=== PATIENT | male | born 1965 ===

== ENCOUNTER 2018-04-22 13:55 | Inpatient (IN) ==
[2018-04-22] MEDS ORDERED: IOPAMIDOL 100 ML BOTTLE IV ONE (13:56)
[2018-04-22] MEDS ORDERED: 0.9 % SODIUM CHLORIDE 1,000 ML IV ONE (14:42)
[2018-04-22] MEDS ORDERED: IPRATROPIUM/ALBUTEROL 3 ML AMPUL.NEB NEB ONE ×2 (14:42→16:02)
--- NOTE | 2018-04-22 14:42 | Emergency Department Note ---
General Adult HPI - General Chief complaint: Cold/Flu Symptoms Stated complaint: cold/fever Time Seen by Provider: 04/22/18 14:18 Source: patient Mode of arrival: ambulatory Limitations: no limitations - History of Present Illness HPI Narrative: She referred over from the [facility] clinic as patient's been complaining mostly that he has been having trouble with diarrhea he states his been running fevers of 100 102 over the past 4 days he feels flulike. He is having some trouble breathing with wheezing. He does have an inhaler and a disc but he ran out of his medications did have some low sats at the [facility] clinic they did give a DuoNeb but he continued having some low sats and was referred to the ED.Current temperature is 98.6 the pulse is 98 respirations are 20 the blood pressure 123/67 pulse ox 88% on room air. His chest x-ray shows no acute infiltrates smoker continues smoking has been on an inhaler for the past 2 years he believes he was diagnosed with asthma but is not sure if it was COPD. He did run out of his inhaler - Related Data Home Medications Medication Instructions Recorded Confirmed Doxazosin [Cardura] 1 mg PO HS 04/22/18 04/22/18 rOPINIRole [Requip] 0.5 mg PO HS 04/22/18 04/22/18 tiZANidine [Zanaflex] 4 mg PO TID 04/22/18 04/22/18 Allergies Allergy/AdvReac Type Severity Reaction Status Date / Time No Known Drug Allergies Allergy Unverified 04/22/18 20:03 Review of Systems All systems ED: reviewed and negative except as stated. Constitutional: Reports: fever, chills Eyes: Denies: eye pain ENT ED: Denies: ear pain, throat pain Cardiovascular: Denies: chest pain, palpitations Respiratory: Reports: shortness of breath, wheezes Past Medical History - Past Medical History Medical history: Reports: asthma Family history: Reports: non-contributory - Social History smoking status: Current every day smoker Alcohol use: Reports: Unknown Drug use: Reports: unknown Physical Exam Limitations: no limitations General appearance: alert Head: atraumatic, normocephalic Eye: Present: normal appearance, PERRL ENT: normal exam Neck: Present: normal inspection, full ROM Chest: Present: normal inspection, symmetric chest wall rise Respiratory: Present: normal lung sounds bilaterally, wheezes. Absent: respiratory distress, rales/crackles Cardiovascular: Present: regular rate, normal rhythm Abdominal: Present: soft. Absent: distention, tenderness, guarding, rebound Extremities: Present: normal inspection. Absent: full ROM, tenderness Back: Present: normal inspection. Absent: full ROM, tenderness, CVA tenderness (R) Neurological: Present: alert, oriented X3, CN II-XII intact Psychiatric: Present: normal affect, normal mood. Absent: depressed Skin: Present: warm, cool, dry. Absent: diaphoretic, intact Course Vital Signs Temperature 98.6 F 04/22/18 13:56 Pulse Rate 98 H 04/22/18 13:56 Respiratory Rate 20 04/22/18 13:56 Blood Pressure 123/67 04/22/18 13:56 Pulse Oximetry (%) 88 L 04/22/18 13:56 Temperature 99.3 F H 04/22/18 16:53 Pulse Rate 88 04/22/18 20:01 Respiratory Rate 16 04/22/18 20:01 Blood Pressure 125/56 04/22/18 20:01 Pulse Oximetry (%) 91 04/22/18 20:01 Medical Decision Making - MDM Narrative Medical decision making narrative: Had an elevated d-dimer of 5.0 and CTA showed no evidence of PE. Patient has been given DuoNeb's and put on a heart neb is been in the ED for over 6 hours and his sats continue to drop after the oxygen is removed. It drops down to 87- 86%. At the [facility] clinic he was running in the 80s. He has an inhaler but he has not been using the albuterol inhaler. States his been having wheezing for over 10 years. He does smoke. Chest x-ray was negative as well. Dr. Santana contacted and patient to be admitted - Lab Data Result diagrams: 04/22/18 14:30 Lab Results 04/22/18 04/22/18 04/22/18 Range/Units 14:29 14:29 14:30 WBC 7.3 (4.5-11.0) K/mcL RBC 5.42 (4.50-5.90) M/mcL Hgb 15.8 (13.5-16.5) g/dL Hct 48.0 (41.0-55.0) % POC Hct 49.0 (41.0-55.0) % MCV 88.6 (80.0-100.0) fL MCH 29.1 (26.0-34.0) pg MCHC 32.9 (31.0-36.0) g/dL RDW 13.6 (11.5-14.5) % Plt Count 154 (140-440) K/mcL MPV 9.0 (7.4-10.4) fL Total Counted 100 Seg Neutrophils % 57 (38-78) % Band Neutrophils % 10 (0-10) % Lymphocytes % 21 (15-49) % Monocytes % (Manual) 12 (1-12) % Platelet Estimate Normal (NORMAL) RBC Morphology Normal (NORMAL) D-Dimer (0.00-0.40) ug/ml VBG Lactic Acid 1.6 (0.5-2.0) mmol/L POC Sodium 137 (133-145) mmol/L POC Potassium 3.7 (3.3-5.1) mmol/L POC Chloride 96 (96-108) mmol/L POC Total CO2 26 (22-30) mmol/L POC BUN 14 (6-20) mg/dl POC Creatinine 1.1 (0.7-1.2) mg/dl POC Glucose 125 H (70-105) mg/dL POC WB Ioniz Calcium 1.03 L (1.16-1.32) mmol/L NT-Pro-B Natriuret Pep (0-125) pg/ml Urine Color Urine Appearance Urine pH (5.0-9.0) Ur Specific [place] (1.000-1.035) Urine Protein (NEG) mg/dL Urine Glucose (UA) (NEG) mg/dL Urine Ketones (NEG) mg/dL Urine Occult Blood (<5) anupama/mcL Urine Nitrate (NEG) Urine Bilirubin (NEG) mg/dL Urine Urobilinogen (NEG) mg/dL Ur Leukocyte Esterase (NEG) /uL 04/22/18 04/22/18 04/22/18 Range/Units 14:30 14:34 20:15 WBC (4.5-11.0) K/mcL RBC (4.50-5.90) M/mcL Hgb (13.5-16.5) g/dL Hct (41.0-55.0) % POC Hct (41.0-55.0) % MCV (80.0-100.0) fL MCH (26.0-34.0) pg MCHC (31.0-36.0) g/dL RDW (11.5-14.5) % Plt Count (140-440) K/mcL MPV (7.4-10.4) fL Total Counted Seg Neutrophils % (38-78) % Band Neutrophils % (0-10) % Lymphocytes % (15-49) % Monocytes % (Manual) (1-12) % Platelet Estimate (NORMAL) RBC Morphology (NORMAL) D-Dimer 0.54 H (0.00-0.40) ug/ml VBG Lactic Acid (0.5-2.0) mmol/L POC Sodium (133-145) mmol/L POC Potassium (3.3-5.1) mmol/L POC Chloride (96-108) mmol/L POC Total CO2 (22-30) mmol/L POC BUN (6-20) mg/dl POC Creatinine (0.7-1.2) mg/dl POC Glucose (70-105) mg/dL POC WB Ioniz Calcium (1.16-1.32) mmol/L NT-Pro-B Natriuret Pep < 50.0 (0-125) pg/ml Urine Color Yellow Urine Appearance Clear Urine pH 6.0 (5.0-9.0) Ur Specific [place] 1.015 (1.000-1.035) Urine Protein Trace (NEG) mg/dL Urine Glucose (UA) 500 (2+) (NEG) mg/dL Urine Ketones 5 (trace) (NEG) mg/dL Urine Occult Blood Trace A (<5) anupama/mcL Urine Nitrate Neg (NEG) Urine Bilirubin Neg (NEG) mg/dL Urine Urobilinogen Norm (NEG) mg/dL Ur Leukocyte Esterase Neg (NEG) /uL Disposition Pt seen by DRAFTER (CAD) ELECTRONIC/PA only: No Clinical Impression: Status asthmaticus Disposition: Xfer As Inpt ([facility]) Condition: Fair Referrals: Heriberto Longoria MD [Referring] - Time of Disposition: 20:56
[2018-04-22] MEDS ORDERED: methylPREDNISolone SOD SUCC 125 MG/2 ML VIAL IV ONE (14:44)
--- NOTE | 2018-04-22 14:46 | XRay Report ---
CLINICAL INFORMATION: cough COMPARISON: None. FINDINGS: The heart size, mediastinum and pulmonary vessels are unremarkable. The lungs are clear. There are no effusions. The bones and soft tissues are within normal limits. IMPRESSION: Normal chest. Interpreted and Authenticated by: Delonte Epstein 04/22/18
[2018-04-22 14:56] LABS: Mean Cell Volume 88.6 fL (80.0-100.0); Mean Corpuscular HGB Conc 32.9 g/dL (31.0-36.0); Platelet Count 154 K/mcL (140-440); RBC 5.42 M/mcL (4.50-5.90); Red Cell Distribution Width 13.6 % (11.5-14.5)
[2018-04-22 15:15] LABS: Band Neutrophils % 10 % (0-10); Lymphocytes % 21 % (15-49); Monocytes % (Manual) 12 % (1-12); Platelet Estimate NORMAL (NORMAL); RBC Morphology NORMAL (NORMAL); Segmented Neutrophils % 57 % (38-78)
[2018-04-22] MEDS ORDERED: ACETAMINOPHEN 325 MG TABLET PO ONE (16:01)
--- NOTE | 2018-04-22 17:31 | Cat Scan Report ---
CLINICAL INFORMATION: Elevated d-dimer and chest pain COMPARISON: None. TECHNIQUE: 80 cc of Isovue-300 were injected intravenously. Using SmartPrep to maximize pulmonary artery opacification, 2.5 mm helical slices were obtained from the lung apices through the lung bases. Following reconstruction, 2.5 mm sagittal, coronal, and axial reformations were processed. The exam was reviewed at mediastinal, lung, and bone windows. The exam was performed using radiation dose optimization techniques including, but not limited to, automated exposure control, adjustment of the mA and/or kV according to patient size and use of iterative reconstruction technique. FINDINGS: Pulmonary parenchymal windows show elevated lung volumes and wall thickening dilatation of bronchi compatible bronchitis or asthma. Subsegmental bronchi of the lateral and medial right middle lobe segments demonstrate tubular bronchiectasis. There is also a large paramediastinal bullae in the right middle lobe. No other bullae. Pleural spaces are normal. Mediastinal windows show the pulmonary arteries are suboptimally optimally opacified, but there is no evidence of embolus. Thoracic aorta is normal in contour and caliber. There are mildly enlarged lymph nodes in the lower mediastinum ranging up to 20 mm in the lower right paratracheal region. Lymph nodes nodes up to 12 mm in both tim, pericarinal and periaortic arch regions. These are likely benign reactive lymph nodes. Esophagus is unremarkable. Heart is normal in size and configuration with no appreciable plaque in the coronary arteries. Soft tissues are grossly normal Bones and soft tissues of the chest wall are unremarkable. IMPRESSION: 1. No evidence of pulmonary embolus 2. Moderate bronchitis. Tubular bronchiectasis in the segmental subsegmental right middle lobe bronchi may predispose to future infection. 3. Mild lower mediastinal and hilar adenopathy are likely benign reactive lymph nodes related to pulmonary infection. Interpreted and Authenticated by: Delonte Epstein 04/22/18
[2018-04-22] MEDS ORDERED: ALBUTEROL SULFATE 5 MG/ML NEB SOLUTION BOTTLE NEB ONE (17:39)
[2018-04-22] MEDS ORDERED: ALBUTEROL SULFATE 2.5 MG/3 ML NEBULIZER ONE (17:57)
[2018-04-22 20:53] LABS: Appearance,Urine CLEAR; Bilirubin,Urine NEG (NEG); Color,Urine YELLOW; Glucose,Urine (UA) 500 (2+) mg/dL (NEG); Leukocyte Esterase,Urine NEG /uL (NEG); Protein,Urine TRACE mg/dL (NEG); Specific Gravity,Urine 1.015 (1.000-1.035); Urine Blood TRACE ery/mcL (<5); Urobilinogen,Urine NORM (NEG)
[2018-04-22 21:08] LABS: Bacteria,Urine 0 /hpf (0); Mucus,Urine FEW /hpf (0); Urine RBC 1 /hpf (0-1); Urine Squamous Epithelial Cell 1 /hpf (0-4); Urine WBC 1 /hpf (0-4)
[2018-04-22] MEDS ORDERED: guaiFENesin/DEXTROMETHORPHAN ORAL SOL PO ONE (21:27)
[2018-04-22 21:44] LABS: Amphetamine Screen,Urine NONE DETECTED (NONDETECTED); Benzodiazepines Screen,Urine NONE DETECTED (NONDETECTED); Cocaine Screen,Urine NONE DETECTED (NONDETECTED); Opiate Screen,Urine NONE DETECTED (NONDETECTED); Oxycodone, Urine Screen NONE DETECTED (NONDETECTED)
[2018-04-22] MEDS ORDERED: guaiFENesin W/DM (PP) 5 ML ORAL.SOL (#118) PO ONE (21:48)
--- NOTE | 2018-04-22 22:11 | Internal Med History&Physical ---
Medical - H&P: HPI Patient information: Note initiated : 04/22/18 at 10:06 pm Service Date, if different from initiated Date: [] Patient: Cole Biggs 52 y/o M admitted on for cold/fever. Chief Complaint: [] History of present illness: Mr. Biggs is a 52 year old M with history of smoking, daily use of marijuana, presents to the emergency room for evaluation of shortness of breath and cough that has been bothering him for the last 3-4 days. He and his partner have been down with a viral cough it seems for the last few days, started after he visited a friend in the hospital. Patient has cough whitish sputum no blood in the sputum, denies any sinus congestion or runny nose or watery eyes. He denies any headache changes in vision difficulty in swallowing, denies any nausea abdominal pain, he did have diarrhea watery but has now resolved. He was seen in the chest clinic today and was noted to be hypoxic and therefore sent to the hospital for further evaluation. On presentation patient was afebrile however had a maximum temperature of 101.7 in the ER, heart rate of 101 blood pressure 123/67, respirations 20-24, lowest oxygen saturation was 82% on room air. Chest x-ray was reported as negative. Labs unremarkable, d-dimer mildly elevated at 0.54 lactic acid 1.6 UA clean. Flu test done in the ED was negative. CT angiogram for pulmonary embolism was negative for PE, patient did have moderate bronchitis on the chest CT. patient reports that his back pain is worse after his coughing bouts, he has pins in his back thinks its dislodged. He feels anxious at times. In ther ER despide multiple duonebs, the patient remained hypoxic and is therefore being admitted to the hospital for further management. All systems: reviewed and no additional remarkable complaints except as stated (as per HPI reste neg,) Medical - H&P: PMH Medical history: copd back pain bph h/o opiate use Surgical history: back surgery left foot surgery Pertinent family history: denies h/o asthma Social history: active smoker dialy thc user ex heavy etoh user Medical - H&P: Meds Home Medications Medication Instructions Recorded Confirmed Type Doxazosin [Cardura] 1 mg PO HS 04/22/18 04/22/18 History rOPINIRole [Requip] 0.5 mg PO HS 04/22/18 04/22/18 History tiZANidine [Zanaflex] 4 mg PO TID 04/22/18 04/22/18 History Allergies Allergy/AdvReac Type Severity Reaction Status Date / Time No Known Drug Allergies Allergy Unverified 04/22/18 20:03 Medical - H&P: Exam - Constitutional Vitals: Temp Pulse Resp BP Pulse Ox 99.3 F H 89 24 H 107/55 97 04/22/18 16:53 04/22/18 22:02 04/22/18 22:02 04/22/18 22:02 04/22/18 22:02 Exam: Constitutional; Afebrile, cooperative, alert, not in distress. Eyes- No icterus, , No periorbital swelling Ears- Ext ear normal, hearing normal to conversation. Neck- Midline trachea, supple Respiratory system: Air Entry equal on both sides, poor air entry bilterally, ally exp wheezing, speaking full sentences. CVS- Rate rhythm regular, S1,S2 heard, no gallop, no rub. Abdomen- Soft nontender abdomen, no organomegaly, no tenderness, no guarding or rigidity, METAL BUILDING ASSEMBLER- AOOx3, moving all extremities, no gross focal deficit noted. Medical - H&P: Reslt - Labs CBC & Chem 7: 04/22/18 14:30 Labs: Short CBC 04/22/18 Range/Units 14:30 WBC 7.3 (4.5-11.0) K/mcL Hgb 15.8 (13.5-16.5) g/dL Hct 48.0 (41.0-55.0) % Plt Count 154 (140-440) K/mcL Urine 04/22/18 Range/Units 20:15 Urine Color Yellow Urine Appearance Clear Urine pH 6.0 (5.0-9.0) Ur Specific [place] 1.015 (1.000-1.035) Urine Protein Trace (NEG) mg/dL Urine Glucose (UA) 500 (2+) (NEG) mg/dL Medical - H&P: A/P - Narrative A/P Narrative: A/P Acute copd exacerbatin Acute hypoxic resp failure Chr back pain Anxiety BPH Plan Admit to med surgy oxygen to keep osat > 90 Duonebs, zithromax and steroids PO tamiflu, send resp viral panel check utox check lumbar x ray to r/o any dislodgement of the pin. DVT hep sq Diet regular Full code.
[2018-04-22] MEDS ORDERED: ALBUTEROL SULFATE 2.5 MG/3 ML NEBULIZER NEB PRN (22:34)
[2018-04-22] MEDS ORDERED: ONDANSETRON 4 MG/2 ML VIAL IV PRN (22:34)
[2018-04-22] MEDS ORDERED: NALOXONE HCL 0.4 MG/ML VIAL IV PRN (22:34)
[2018-04-22] MEDS ORDERED: ACETAMINOPHEN 325 MG TABLET PO PRN (22:34)
[2018-04-22] MEDS ORDERED: AZITHROMYCIN 250 MG TABLET PO ONE (22:34)
[2018-04-22] MEDS: IPRATROPIUM/ALBUTEROL 3 ML AMPUL.NEB NEB SCH (22:44)
[2018-04-22] MEDS: OSELTAMIVIR PHOSPHATE 75 MG CAPSULE PO SCH (23:29)
[2018-04-22] MEDS: tiZANidine 4 MG TABLET PO SCH (23:29)
[2018-04-22] MEDS: rOPINIRole 0.25 MG TABLET PO SCH (23:30)
[2018-04-22] MEDS: DOXAZOSIN 1 MG TABLET PO SCH (23:37)
[2018-04-23] MEDS: 0.9 % SODIUM CHLORIDE 10 ML SYRINGE IV SCH ×4 (01:36→21:01)
[2018-04-23] MEDS: IPRATROPIUM/ALBUTEROL 3 ML AMPUL.NEB NEB SCH ×6 (01:58→22:49)
--- NOTE | 2018-04-23 06:38 | XRay Report ---
CLINICAL INFORMATION: back pain COMPARISON: None. FINDINGS: Lumbar spine is anatomically aligned. Anterior/posterior L5-S1 fusion provided by interbody graft, pedicle screws and short interbody struts are appreciated. There are also anterior L4-5 fusion changes. Mild chronic wedging of the T11-T12 vertebral bodies due to chronic Scheuermann's disease appreciated. The SI joints are normal. The spinal stimulator battery is seen over the right gluteal region with wires ascending in the subcutaneous fat to enter the left T10-11 interlaminar space. Electrodes are not included on the film IMPRESSION: 1. L4-5 anterior fusion and L5-S1 anterior/posterior fusion with wide laminectomy. The cervical spine is anatomically aligned. 2. Moderate chronic wedging of the T10-T12 vertebral bodies and endplate irregularity compatible with chronic Scheuermann's disease. Interpreted and Authenticated by: Delonte Epstein 04/23/18
[2018-04-23 06:47] LABS: Basophils # (Auto) 0 K/mcL (0.0-0.3); Basophils % (Auto) 0.1 % (0.0-2.0); Eosinophils # (Auto) 0 K/mcL (0.0-0.7); Eosinophils % (Auto) 0 % (0.0-7.0); Granulocytes % (Auto) 77.5 % (38.0-78.0); Lymphocytes # (Auto) 0.6 K/mcL (1.5-4.8); Lymphocytes % (Auto) 12.7 % (15.5-49.0); Mean Cell Volume 90.1 fL (80.0-100.0); Mean Corpuscular HGB Conc 32.8 g/dL (31.0-36.0); Monocytes # (Auto) 0.4 K/mcL (0.1-0.9); Monocytes % (Auto) 9.7 % (1.0-12.0); Platelet Count 155 K/mcL (140-440); RBC 4.95 M/mcL (4.50-5.90); Red Cell Distribution Width 13.7 % (11.5-14.5)
[2018-04-23 07:01] LABS: ALT/SGPT 35 U/l (0-40); Albumin 4.1 gm/dL (3.2-5.2); Albumin/Globulin Ratio 1.2 (1.0-2.3); Alkaline Phosphatase 48 U/L (39-117); Bilirubin,Direct < 0.2 mg/dL (0.0-0.3); Blood Urea Nitrogen 16 mg/dl (6-20); Gamma Glutamyl Transpeptidase 19 U/L (8-61); Uric Acid 5.6 mg/dL (2.5-8.0)
[2018-04-23] MEDS: predniSONE 20 MG TABLET PO SCH (08:04)
[2018-04-23] MEDS: HEPARIN 5,000 UNIT/ML VIAL SQ SCH ×2 (09:27→21:08)
[2018-04-23] MEDS: FAMOTIDINE 20 MG TABLET PO SCH ×2 (09:27→21:02)
[2018-04-23] MEDS: tiZANidine 4 MG TABLET PO SCH ×3 (09:27→21:02)
[2018-04-23] MEDS: OSELTAMIVIR PHOSPHATE 75 MG CAPSULE PO SCH ×2 (09:28→21:01)
[2018-04-23] MEDS: AZITHROMYCIN 250 MG TABLET PO SCH (09:28)
--- NOTE | 2018-04-23 18:04 | Internal Med Progress Note ---
Medical - PN: Subj Patient information: Note initiated : 04/23/18 at 5:43 pm Service Date, if different from initiated Date: [] Patient: Cole Biggs 52 y/o M admitted on 04/22/18 for cold/fever. Chief Complaint: [] Interval history: Mr. Biggs is a 52 year old M with history of smoking, daily use of marijuana, presents to the emergency room for evaluation of shortness of breath and cough that has been bothering him for the last 3-4 days. He and his partner have been down with a viral cough it seems for the last few days, started after he visited a friend in the hospital. Patient has cough whitish sputum no blood in the sputum, denies any sinus congestion or runny nose or watery eyes. He denies any headache changes in vision difficulty in swallowing, denies any nausea abdominal pain, he did have diarrhea watery but has now resolved. He was seen in the chest clinic today and was noted to be hypoxic and therefore sent to the hospital for further evaluation. On presentation patient was afebrile however had a maximum temperature of 101.7 in the ER, heart rate of 101 blood pressure 123/67, respirations 20-24, lowest oxygen saturation was 82% on room air. Chest x-ray was reported as negative. Labs unremarkable, d-dimer mildly elevated at 0.54 lactic acid 1.6 UA clean. Flu test done in the ED was negative. CT angiogram for pulmonary embolism was negative for PE, patient did have moderate bronchitis on the chest CT. patient reports that his back pain is worse after his coughing bouts, he has pins in his back thinks its dislodged. He feels anxious at times. In ther ER despide multiple duonebs, the patient remained hypoxic and is therefore being admitted to the hospital for further management. 04/23 Patient seen and examined, no acute overnight events, oxygen is at 4 L. Influe nza tested positive on repeat testing. Patient is on Zithromax as well as Tamiflu. Clinically remained stable but has significant bilateral wheezing no other complaints or concerns. x ray neg for any displacement of screws Pertinent ROS: Denies headache, dizziness Denies chest pain, palpitations Improving shortness of breath Denies abdominal pain, nausea or vomiting. - Constitutional Vitals: Vital Signs Temp Pulse Resp BP Pulse Ox 98.2 F 82 22 122/70 95 04/23/18 17:33 04/23/18 17:33 04/23/18 17:33 04/23/18 17:33 04/23/18 17:33 Period Temp Pulse Resp BP Sys/Vora Pulse Ox Last 24 Hr 98.2 F-98.9 F 77-93 16-28 107-169/55-80 89-97 Intake and Output 04/23/18 04/23/18 04/23/18 05:59 13:59 21:59 Intake Total 350 1160 Output Total 675 200 Balance -325 960 Weight 266 lb 8 oz Intake & Output: Intake & Output 04/23/18 04/23/18 04/23/18 05:59 13:59 21:59 Intake Total 350 1160 Output Total 675 200 Balance -325 960 Weight 266 lb 8 oz Intake: Oral 350 1160 Output: Void Amount 675 200 Other: Meal Lunch Percent of Meal Consumed 100% Feeding Ability Independent Urine Appearance Clear Urine Color Straw Urine Odor Normal # Voids 1 # Bowel Movements 1 Exam: Constitutional; Afebrile, cooperative, alert, not in distress. Respiratory system: Air Entry equal on both sides, ally exp wheeze, same as yesterday CVS- Rate rhythm regular, S1,S2 heard, no gallop, no rub. Abdomen- Soft nontender abdomen, no organomegaly, no tenderness, no guarding or rigidity, CERTIFICATION TECHNICIAN- AOOx3, moving all extremities, no gross focal deficit noted. Medical - PN: Obj Da - Labs CBC & Chem 7: 04/23/18 04:20 04/23/18 04:20 Labs: Abnormal Lab Results 04/23/18 04/23/18 04/22/18 04:20 04:20 20:15 Lymph % (Auto) 12.7 L Lymph # (Auto) 0.6 L D-Dimer Glucose 190 H POC Glucose POC WB Ioniz Calcium AST 41 H Lactate Dehydrogenase 270 H Urine Occult Blood U Marijuana (THC) Screen Suspect positive A 04/22/18 04/22/18 04/22/18 20:15 14:30 14:29 Lymph % (Auto) Lymph # (Auto) D-Dimer 0.54 H Glucose POC Glucose 125 H POC WB Ioniz Calcium 1.03 L AST Lactate Dehydrogenase Urine Occult Blood Trace A U Marijuana (THC) Screen Meds: Medications Acetaminophen (Tylenol) 650 mg PO Q6HP PRN PRN Reason: PAIN/FEVER > 101 Albuterol Sulfate (Ventolin) 2.5 mg NEB Q2HP PRN PRN Reason: Shortness Of Breath Albuterol/Ipratropium (Duoneb) 3 ml NEB Q4HRT [facility] Last Admin: 04/23/18 14:50 Dose: 3 ml Documented by: Azithromycin (Zithromax) 250 mg PO DAILY [facility]; Protocol Stop: 04/26/18 09:01 Last Admin: 04/23/18 09:28 Dose: 250 mg Documented by: Doxazosin Mesylate (Cardura) 1 mg PO [facility] Last Admin: 04/22/18 23:37 Dose: 1 mg Documented by: Famotidine (Pepcid) 20 mg PO BID [facility] Last Admin: 04/23/18 09:27 Dose: 20 mg Documented by: Heparin Sodium (Porcine) (Heparin) 5,000 unit SQ Q12 [facility] Last Admin: 04/23/18 09:27 Dose: 5,000 unit Documented by: Naloxone HCl (Narcan) 0.1 mg IV Q2MIN PRN PRN Reason: Opiate Reversal Ondansetron HCl (Zofran) 4 mg IV Q6HP PRN PRN Reason: Nausea And Vomiting Oseltamivir Phosphate (Tamiflu) 75 mg PO BID [facility] Last Admin: 04/23/18 09:28 Dose: 75 mg Documented by: Prednisone (Prednisone) 40 mg PO [facility] Last Admin: 04/23/18 08:04 Dose: 40 mg Documented by: Ropinirole HCl (Requip) 0.5 mg PO [facility] Last Admin: 04/22/18 23:30 Dose: 0.5 mg Documented by: Sodium Chloride (Saline Flush) 10 ml IV Q8 [facility] Last Admin: 04/23/18 13:48 Dose: 10 ml Documented by: Tizanidine HCl (Zanaflex) 4 mg PO TID [facility] Last Admin: 04/23/18 14:57 Dose: 4 mg Documented by: Trazodone HCl (Desyrel) 25 mg PO [facility] PRN PRN Reason: Insomnia Medical - PN: A/P - Time Spent With Patient Total time spent is greater than 50% in coordination of care (as documented) at patient's floor/unit and/or counseling patient: - Narrative A/P Narrative: A/P Acute copd exacerbatin Acute hypoxic resp failure Chr back pain Anxiety BPH acute influenza A Plan oxygen to keep osat > 90, wean off oxygen as tolerated Duonebs, zithromax and steroids to continue PO tamiflu, to continue THC positive on utox, pt daily user . DVT hep sq Diet regular Full code.
[2018-04-23] MEDS: rOPINIRole 0.25 MG TABLET PO SCH (21:01)
[2018-04-23] MEDS: traZODone HCL 50 MG TABLET PO PRN (21:01)
[2018-04-23] MEDS: DOXAZOSIN 1 MG TABLET PO SCH (21:09)
[2018-04-24] MEDS: IPRATROPIUM/ALBUTEROL 3 ML AMPUL.NEB NEB SCH ×6 (02:26→23:30)
[2018-04-24 06:46] LABS: Basophils # (Auto) 0 K/mcL (0.0-0.3); Basophils % (Auto) 0.1 % (0.0-2.0); Eosinophils # (Auto) 0 K/mcL (0.0-0.7); Eosinophils % (Auto) 0.3 % (0.0-7.0); Lymphocytes # (Auto) 1.5 K/mcL (1.5-4.8); Lymphocytes % (Auto) 20.1 % (15.5-49.0); Mean Cell Volume 87.2 fL (80.0-100.0); Mean Corpuscular HGB Conc 32.9 g/dL (31.0-36.0); Monocytes % (Auto) 12.5 % (1.0-12.0); Platelet Count 141 K/mcL (140-440); RBC 4.85 M/mcL (4.50-5.90); Red Cell Distribution Width 13.1 % (11.5-14.5)
[2018-04-24 07:17] LABS: ALT/SGPT 29 U/l (0-40); Albumin 3.7 gm/dL (3.2-5.2); Albumin/Globulin Ratio 1.3 (1.0-2.3); Alkaline Phosphatase 42 U/L (39-117); Bilirubin,Direct < 0.2 mg/dL (0.0-0.3); Blood Urea Nitrogen 16 mg/dl (6-20); Gamma Glutamyl Transpeptidase 17 U/L (8-61); Uric Acid 5.1 mg/dL (2.5-8.0)
[2018-04-24] MEDS: 0.9 % SODIUM CHLORIDE 10 ML SYRINGE IV SCH ×3 (07:30→21:57)
[2018-04-24] MEDS ORDERED: POTASSIUM CHLORIDE 20 MEQ PACKET PO ONE (08:24)
[2018-04-24] MEDS: predniSONE 20 MG TABLET PO SCH (08:58)
[2018-04-24] MEDS: HEPARIN 5,000 UNIT/ML VIAL SQ SCH ×2 (08:59→21:53)
[2018-04-24] MEDS: FAMOTIDINE 20 MG TABLET PO SCH ×2 (08:59→21:53)
[2018-04-24] MEDS: tiZANidine 4 MG TABLET PO SCH ×3 (08:59→21:56)
[2018-04-24] MEDS: OSELTAMIVIR PHOSPHATE 75 MG CAPSULE PO SCH ×2 (08:59→21:56)
[2018-04-24] MEDS: AZITHROMYCIN 250 MG TABLET PO SCH (08:59)
[2018-04-24] MEDS ORDERED: LORazepam 1 MG TABLET PO PRN (18:11)
--- NOTE | 2018-04-24 18:11 | Internal Med Progress Note ---
Medical - PN: Subj Patient information: Note initiated : 04/24/18 at 6:09 pm Service Date, if different from initiated Date: [] Patient: Cole Biggs 52 y/o M admitted on 04/22/18 for cold/fever. Chief Complaint: [] Interval history: Mr. Biggs is a 52 year old M with history of smoking, daily use of marijuana, presents to the emergency room for evaluation of shortness of breath and cough that has been bothering him for the last 3-4 days. He and his partner have been down with a viral cough it seems for the last few days, started after he visited a friend in the hospital. Patient has cough whitish sputum no blood in the sputum, denies any sinus congestion or runny nose or watery eyes. He denies any headache changes in vision difficulty in swallowing, denies any nausea abdominal pain, he did have diarrhea watery but has now resolved. He was seen in the chest clinic today and was noted to be hypoxic and therefore sent to the hospital for further evaluation. On presentation patient was afebrile however had a maximum temperature of 101.7 in the ER, heart rate of 101 blood pressure 123/67, respirations 20-24, lowest oxygen saturation was 82% on room air. Chest x-ray was reported as negative. Labs unremarkable, d-dimer mildly elevated at 0.54 lactic acid 1.6 UA clean. Flu test done in the ED was negative. CT angiogram for pulmonary embolism was negative for PE, patient did have moderate bronchitis on the chest CT. patient reports that his back pain is worse after his coughing bouts, he has pins in his back thinks its dislodged. He feels anxious at times. In ther ER despide multiple duonebs, the patient remained hypoxic and is therefore being admitted to the hospital for further management. 04/23 Patient seen and examined, no acute overnight events, oxygen is at 4 L. Influe nza tested positive on repeat testing. Patient is on Zithromax as well as Tamiflu. Clinically remained stable but has significant bilateral wheezing no other complaints or concerns. x ray neg for any displacement of screws 04/24 Patient seen and examined, lying comfortably in bed, feels much better compared to yesterday. Oxygen needs have come down, patient is around 1.5-2 L of oxygen now via nasal cannula. He reports increased ability to take deep breaths however still has shortness of breath on exertion. Still wheezing Pertinent ROS: Denies headache, dizziness Denies chest pain, palpitations Cough and shortness of breath improved Denies abdominal pain, nausea or vomiting. - Constitutional Vitals: Vital Signs Temp Pulse Resp BP Pulse Ox 98.2 F 79 16 142/80 93 04/24/18 15:53 04/24/18 15:53 04/24/18 15:53 04/24/18 15:53 04/24/18 15:53 Period Temp Pulse Resp BP Sys/Vora Pulse Ox Last 24 Hr 97.2 F-98.8 F 68-88 16-26 124-154/66-85 90-97 Intake and Output 04/24/18 04/24/18 04/24/18 05:59 13:59 21:59 Intake Total 350 300 Balance 350 300 Intake & Output: Intake & Output 04/24/18 04/24/18 04/24/18 05:59 13:59 21:59 Intake Total 350 300 Balance 350 300 Intake: Oral 350 GI Tube Flush 300 Other: Stool Size Small Stool Color Brown Green Stool Consistency Soft Christine # Voids 1 3 # Bowel Movements 1 Exam: Constitutional; Afebrile, cooperative, alert, not in distress. Respiratory system: Air entry decreased bilaterally but equal on both sides, patient has prolonged expiratory phase and bilateral expiratory wheezing present patient apparently has improved compared to yesterday CVS- Rate rhythm regular, S1,S2 heard, no gallop, no rub. Abdomen- Soft nontender abdomen, no organomegaly, no tenderness, no guarding or rigidity, NETBACKUP ADMIN- AOOx3, moving all extremities, no gross focal deficit noted. Medical - PN: Obj Da - Labs CBC & Chem 7: 04/24/18 04:50 04/24/18 04:50 Labs: Abnormal Lab Results 04/24/18 04/24/18 04/23/18 04:50 04:50 04:20 Lymph % (Auto) [place] % (Auto) 12.5 H Lymph # (Auto) [place] # (Auto) 1.0 H D-Dimer Glucose 115 H 190 H POC Glucose POC WB Ioniz Calcium AST 41 H Lactate Dehydrogenase 270 H Urine Occult Blood U Marijuana (THC) Screen 04/23/18 04/22/18 04/22/18 04:20 20:15 20:15 Lymph % (Auto) 12.7 L [place] % (Auto) Lymph # (Auto) 0.6 L [place] # (Auto) D-Dimer Glucose POC Glucose POC WB Ioniz Calcium AST Lactate Dehydrogenase Urine Occult Blood Trace A U Marijuana (THC) Screen Suspect positive A 04/22/18 04/22/18 14:30 14:29 Lymph % (Auto) [place] % (Auto) Lymph # (Auto) [place] # (Auto) D-Dimer 0.54 H Glucose POC Glucose 125 H POC WB Ioniz Calcium 1.03 L AST Lactate Dehydrogenase Urine Occult Blood U Marijuana (THC) Screen Meds: Medications Acetaminophen (Tylenol) 650 mg PO Q6HP PRN PRN Reason: PAIN/FEVER > 101 Albuterol Sulfate (Ventolin) 2.5 mg NEB Q2HP PRN PRN Reason: Shortness Of Breath Albuterol/Ipratropium (Duoneb) 3 ml NEB Q4HRT [facility] Last Admin: 04/24/18 14:13 Dose: 3 ml Documented by: Azithromycin (Zithromax) 250 mg PO DAILY [facility]; Protocol Stop: 04/26/18 09:01 Last Admin: 04/24/18 08:59 Dose: 250 mg Documented by: Doxazosin Mesylate (Cardura) 1 mg PO [facility] Last Admin: 04/23/18 21:09 Dose: 1 mg Documented by: Famotidine (Pepcid) 20 mg PO BID [facility] Last Admin: 04/24/18 08:59 Dose: 20 mg Documented by: Heparin Sodium (Porcine) (Heparin) 5,000 unit SQ Q12 [facility] Last Admin: 04/24/18 08:59 Dose: 5,000 unit Documented by: Naloxone HCl (Narcan) 0.1 mg IV Q2MIN PRN PRN Reason: Opiate Reversal Ondansetron HCl (Zofran) 4 mg IV Q6HP PRN PRN Reason: Nausea And Vomiting Oseltamivir Phosphate (Tamiflu) 75 mg PO BID [facility] Last Admin: 04/24/18 08:59 Dose: 75 mg Documented by: Prednisone (Prednisone) 40 mg PO [facility] Last Admin: 04/24/18 08:58 Dose: 40 mg Documented by: Ropinirole HCl (Requip) 0.5 mg PO [facility] Last Admin: 04/23/18 21:01 Dose: 0.5 mg Documented by: Sodium Chloride (Saline Flush) 10 ml IV Q8 [facility] Last Admin: 04/24/18 13:28 Dose: Not Given Documented by: Tizanidine HCl (Zanaflex) 4 mg PO TID [facility] Last Admin: 04/24/18 15:02 Dose: 4 mg Documented by: Trazodone HCl (Desyrel) 25 mg PO HSP PRN PRN Reason: Insomnia Last Admin: 04/23/18 21:01 Dose: 25 mg Documented by: Medical - PN: A/P - Time Spent With Patient Total time spent is greater than 50% in coordination of care (as documented) at patient's floor/unit and/or counseling patient: - Narrative A/P Narrative: A/P Acute copd exacerbatin Acute hypoxic resp failure Chr back pain Anxiety BPH acute influenza A Plan oxygen to keep osat > 90, wean off oxygen as tolerated, on 1.5 - 2 L via nc Duonebs, zithromax and steroids to continue PO tamiflu, to continue THC positive on utox, pt daily user . DVT hep sq Diet regular Full code. will d/c home once air entry is improved, wheeznig improved and patient off oxygen.
[2018-04-24] MEDS: DOXAZOSIN 1 MG TABLET PO SCH (21:55)
[2018-04-24] MEDS: rOPINIRole 0.25 MG TABLET PO SCH (21:56)
[2018-04-24] MEDS: traZODone HCL 50 MG TABLET PO PRN (21:56)
[2018-04-25] MEDS: IPRATROPIUM/ALBUTEROL 3 ML AMPUL.NEB NEB SCH ×8 (00:08→23:47)
[2018-04-25] MEDS: 0.9 % SODIUM CHLORIDE 10 ML SYRINGE IV SCH ×3 (06:13→21:17)
[2018-04-25 06:38] LABS: Basophils # (Auto) 0 K/mcL (0.0-0.3); Basophils % (Auto) 0.2 % (0.0-2.0); Eosinophils # (Auto) 0 K/mcL (0.0-0.7); Eosinophils % (Auto) 0.1 % (0.0-7.0); Granulocytes % (Auto) 56.1 % (38.0-78.0); Lymphocytes % (Auto) 28.4 % (15.5-49.0); Mean Corpuscular HGB Conc 32.8 g/dL (31.0-36.0); Monocytes # (Auto) 1.1 K/mcL (0.1-0.9); Monocytes % (Auto) 15.2 % (1.0-12.0); Platelet Count 138 K/mcL (140-440); RBC 4.73 M/mcL (4.50-5.90); Red Cell Distribution Width 13.9 % (11.5-14.5)
[2018-04-25 06:53] LABS: ALT/SGPT 41 U/l (0-40); Albumin/Globulin Ratio 1.4 (1.0-2.3); Alkaline Phosphatase 43 U/L (39-117); Bilirubin,Direct < 0.2 mg/dL (0.0-0.3); Blood Urea Nitrogen 14 mg/dl (6-20); Gamma Glutamyl Transpeptidase 21 U/L (8-61); Uric Acid 4.8 mg/dL (2.5-8.0)
[2018-04-25] MEDS: OSELTAMIVIR PHOSPHATE 75 MG CAPSULE PO SCH ×2 (08:52→21:16)
[2018-04-25] MEDS: tiZANidine 4 MG TABLET PO SCH ×3 (08:52→21:15)
[2018-04-25] MEDS: FAMOTIDINE 20 MG TABLET PO SCH ×2 (08:52→21:16)
[2018-04-25] MEDS: HEPARIN 5,000 UNIT/ML VIAL SQ SCH ×2 (08:53→21:15)
[2018-04-25] MEDS: AZITHROMYCIN 250 MG TABLET PO SCH (08:53)
[2018-04-25] MEDS: predniSONE 20 MG TABLET PO SCH (08:53)
[2018-04-25] MEDS: DOCUSATE SODIUM 100 MG CAPSULE PO SCH ×2 (11:53→21:16)
--- NOTE | 2018-04-25 15:23 | Internal Med Progress Note ---
Medical - PN: Subj Patient information: Note initiated : 04/25/18 at 3:20 pm Service Date, if different from initiated Date: [] Patient: Cole Biggs 52 y/o M admitted on 04/22/18 for cold/fever. Chief Complaint: [] Interval history: Mr. Biggs is a 52 year old M with history of smoking, daily use of marijuana, presents to the emergency room for evaluation of shortness of breath and cough that has been bothering him for the last 3-4 days. He and his partner have been down with a viral cough it seems for the last few days, started after he visited a friend in the hospital. Patient has cough whitish sputum no blood in the sputum, denies any sinus congestion or runny nose or watery eyes. He denies any headache changes in vision difficulty in swallowing, denies any nausea abdominal pain, he did have diarrhea watery but has now resolved. He was seen in the chest clinic today and was noted to be hypoxic and therefore sent to the hospital for further evaluation. On presentation patient was afebrile however had a maximum temperature of 101.7 in the ER, heart rate of 101 blood pressure 123/67, respirations 20-24, lowest oxygen saturation was 82% on room air. Chest x-ray was reported as negative. Labs unremarkable, d-dimer mildly elevated at 0.54 lactic acid 1.6 UA clean. Flu test done in the ED was negative. CT angiogram for pulmonary embolism was negative for PE, patient did have moderate bronchitis on the chest CT. patient reports that his back pain is worse after his coughing bouts, he has pins in his back thinks its dislodged. He feels anxious at times. In ther ER despide multiple duonebs, the patient remained hypoxic and is therefore being admitted to the hospital for further management. 04/23 Patient seen and examined, no acute overnight events, oxygen is at 4 L. Influe nza tested positive on repeat testing. Patient is on Zithromax as well as Tamiflu. Clinically remained stable but has significant bilateral wheezing no other complaints or concerns. x ray neg for any displacement of screws 04/24 Patient seen and examined, lying comfortably in bed, feels much better compared to yesterday. Oxygen needs have come down, patient is around 1.5-2 L of oxygen now via nasal cannula. He reports increased ability to take deep breaths however still has shortness of breath on exertion. Still wheezing 04/25 Patient seen examined, anxious, and depressed today, no SI noted fustrated that he is not getting better He took a shower and felt dizzy and short of breath later still is on oxygen, was on 1L but later 2-3 after the shower he is still wheezing on exam, Pertinent ROS: Denies headache, present dizziness Denies chest pain, palpitations Denies cough , shortness of breath present. Denies abdominal pain, nausea or vomiting. - Constitutional Vitals: Vital Signs Temp Pulse Resp BP Pulse Ox 97.6 F 78 24 H 135/80 94 04/25/18 12:00 04/25/18 12:42 04/25/18 12:42 04/25/18 12:00 04/25/18 12:00 Period Temp Pulse Resp BP Sys/Vora Pulse Ox Last 24 Hr 97.5 F-98.4 F 75-99 16-24 112-142/70-88 90-96 Intake and Output 04/25/18 04/25/18 04/25/18 05:59 13:59 21:59 Intake Total 800 Balance 800 Intake & Output: Intake & Output 04/25/18 04/25/18 04/25/18 05:59 13:59 21:59 Intake Total 800 Balance 800 Intake: Oral 800 Other: Stool Size Small Small Stool Color Brown Brown Stool Consistency Formed Formed Christine # Voids 2 # Bowel Movements 1 1 Exam: Constitutional; Afebrile, cooperative, alert, not in distress. Eyes- No icterus, , No periorbital swelling Ears- Ext ear normal, hearing normal to conversation. Neck- Midline trachea, supple Respiratory system: Air Entry equal on bot sides, to me air entry appears better, he still has ally exp wheezing, better than yesterday. CVS- Rate rhythm regular, S1,S2 heard, no gallop, no rub. Abdomen- Soft nontender abdomen, no organomegaly, no tenderness, no guarding or rigidity, SCREEDMAN/LABORER- AOOx3, moving all extremities, no gross focal deficit noted. Psych- anxious, Medical - PN: Obj Da - Labs CBC & Chem 7: 04/25/18 05:15 04/25/18 05:15 Labs: Abnormal Lab Results 04/25/18 04/25/18 04/24/18 05:15 05:15 04:50 Plt Count 138 L Lymph % (Auto) [place] % (Auto) 15.2 H Lymph # (Auto) [place] # (Auto) 1.1 H Carbon Dioxide 31 H Glucose 106 H 115 H AST 38 H ALT 41 H Lactate Dehydrogenase Triglycerides 186 H Urine Occult Blood U Marijuana (THC) Screen 04/24/18 04/23/18 04/23/18 04:50 04:20 04:20 Plt Count Lymph % (Auto) 12.7 L [place] % (Auto) 12.5 H Lymph # (Auto) 0.6 L [place] # (Auto) 1.0 H Carbon Dioxide Glucose 190 H AST 41 H ALT Lactate Dehydrogenase 270 H Triglycerides Urine Occult Blood U Marijuana (THC) Screen 04/22/18 04/22/18 20:15 20:15 Plt Count Lymph % (Auto) [place] % (Auto) Lymph # (Auto) [place] # (Auto) Carbon Dioxide Glucose AST ALT Lactate Dehydrogenase Triglycerides Urine Occult Blood Trace A U Marijuana (THC) Screen Suspect positive A Meds: Medications Acetaminophen (Tylenol) 650 mg PO Q6HP PRN PRN Reason: PAIN/FEVER > 101 Albuterol Sulfate (Ventolin) 2.5 mg NEB Q2HP PRN PRN Reason: Shortness Of Breath Albuterol/Ipratropium (Duoneb) 3 ml NEB Q4HRT [facility] Last Admin: 04/25/18 12:10 Dose: 3 ml Documented by: Azithromycin (Zithromax) 250 mg PO DAILY [facility]; Protocol Stop: 04/26/18 09:01 Last Admin: 04/25/18 08:53 Dose: 250 mg Documented by: Docusate Sodium (Colace) 100 mg PO BID [facility] Last Admin: 04/25/18 11:53 Dose: 100 mg Documented by: Doxazosin Mesylate (Cardura) 1 mg PO HS [facility] Last Admin: 04/24/18 21:55 Dose: 1 mg Documented by: Famotidine (Pepcid) 20 mg PO BID [facility] Last Admin: 04/25/18 08:52 Dose: 20 mg Documented by: Heparin Sodium (Porcine) (Heparin) 5,000 unit SQ Q12 [facility] Last Admin: 04/25/18 08:53 Dose: 5,000 unit Documented by: Lorazepam (Ativan) 0.5 mg IV Q4HP PRN PRN Reason: ANXIETY/SEDATION Naloxone HCl (Narcan) 0.1 mg IV Q2MIN PRN PRN Reason: Opiate Reversal Ondansetron HCl (Zofran) 4 mg IV Q6HP PRN PRN Reason: Nausea And Vomiting Oseltamivir Phosphate (Tamiflu) 75 mg PO BID [facility] Last Admin: 04/25/18 08:52 Dose: 75 mg Documented by: Prednisone (Prednisone) 40 mg PO [facility] Last Admin: 04/25/18 08:53 Dose: 40 mg Documented by: Ropinirole HCl (Requip) 0.5 mg PO [facility] Last Admin: 04/24/18 21:56 Dose: 0.5 mg Documented by: Senna (Senokot) 1 tab PO [facility] Sodium Chloride (Saline Flush) 10 ml IV Q8 [facility] Last Admin: 04/25/18 06:13 Dose: Not Given Documented by: Tizanidine HCl (Zanaflex) 4 mg PO TID [facility] Last Admin: 04/25/18 08:52 Dose: 4 mg Documented by: Trazodone HCl (Desyrel) 25 mg PO HSP PRN PRN Reason: Insomnia Last Admin: 04/24/18 21:56 Dose: 25 mg Documented by: Medical - PN: A/P - Time Spent With Patient Total time spent is greater than 50% in coordination of care (as documented) at patient's floor/unit and/or counseling patient: - Narrative A/P Narrative: A/P Acute copd exacerbatin Acute hypoxic resp failure Chr back pain Anxiety BPH acute influenza A Plan ativan prn to help with anxiety oxygen to keep osat > 90, wean off oxygen as tolerated, on 1.5 - 2 L via nc, Duonebs, zithromax and steroids to continue PO tamiflu, to continue THC positive on utox, pt daily user patient still needs to be inpatient given that he is still needing oxygen supplementation, and is wheezing. repeat Chest x ray today . DVT hep sq Diet regular Full code.
--- NOTE | 2018-04-25 15:28 | XRay Report ---
CLINICAL INFORMATION: shortness of breath. pneumonia COMPARISON: 04/22/2018 FINDINGS: The heart size, mediastinum and pulmonary vessels are unremarkable. The lungs are clear. There are no effusions. The bones and soft tissues are within normal limits. IMPRESSION: Normal chest. Interpreted and Authenticated by: Delonte Epstein 04/25/18
[2018-04-25] MEDS: LORazepam 2 MG/ML VIAL IV PRN ×2 (16:18→21:14)
[2018-04-25] MEDS ORDERED: DOCUSATE SODIUM 100 MG CAPSULE PO SCH (21:00)
[2018-04-25] MEDS: traZODone HCL 50 MG TABLET PO PRN (21:15)
[2018-04-25] MEDS: rOPINIRole 0.25 MG TABLET PO SCH (21:15)
[2018-04-25] MEDS: DOXAZOSIN 1 MG TABLET PO SCH (21:15)
[2018-04-25] MEDS: SENNOSIDES 1 TABLET PO SCH (21:16)
[2018-04-26] MEDS: IPRATROPIUM/ALBUTEROL 3 ML AMPUL.NEB NEB SCH ×6 (03:59→22:25)
[2018-04-26 06:52] LABS: Basophils # (Auto) 0 K/mcL (0.0-0.3); Basophils % (Auto) 0.2 % (0.0-2.0); Eosinophils # (Auto) 0 K/mcL (0.0-0.7); Eosinophils % (Auto) 0.1 % (0.0-7.0); Granulocytes % (Auto) 57.2 % (38.0-78.0); Lymphocytes # (Auto) 2.4 K/mcL (1.5-4.8); Lymphocytes % (Auto) 28.7 % (15.5-49.0); Mean Cell Volume 90.6 fL (80.0-100.0); Mean Corpuscular HGB Conc 32.6 g/dL (31.0-36.0); Monocytes # (Auto) 1.2 K/mcL (0.1-0.9); Monocytes % (Auto) 13.8 % (1.0-12.0); Platelet Count 156 K/mcL (140-440); RBC 4.89 M/mcL (4.50-5.90)
[2018-04-26 07:18] LABS: ALT/SGPT 136 U/l (0-40); Albumin 3.8 gm/dL (3.2-5.2); Albumin/Globulin Ratio 1.2 (1.0-2.3); Alkaline Phosphatase 51 U/L (39-117); Bilirubin,Direct < 0.2 mg/dL (0.0-0.3); Blood Urea Nitrogen 14 mg/dl (6-20); Gamma Glutamyl Transpeptidase 32 U/L (8-61); Uric Acid 4.8 mg/dL (2.5-8.0)
[2018-04-26] MEDS: 0.9 % SODIUM CHLORIDE 10 ML SYRINGE IV SCH ×3 (08:45→22:03)
[2018-04-26] MEDS: HEPARIN 5,000 UNIT/ML VIAL SQ SCH ×2 (08:47→21:48)
[2018-04-26] MEDS: predniSONE 20 MG TABLET PO SCH (08:47)
[2018-04-26] MEDS: OSELTAMIVIR PHOSPHATE 75 MG CAPSULE PO SCH ×2 (08:47→21:48)
[2018-04-26] MEDS: AZITHROMYCIN 250 MG TABLET PO SCH (08:48)
[2018-04-26] MEDS: tiZANidine 4 MG TABLET PO SCH ×3 (08:48→21:48)
[2018-04-26] MEDS: DOCUSATE SODIUM 100 MG CAPSULE PO SCH ×2 (08:48→21:48)
[2018-04-26] MEDS: FAMOTIDINE 20 MG TABLET PO SCH ×2 (08:48→21:48)
--- NOTE | 2018-04-26 14:25 | Internal Med Progress Note ---
Medical - PN: Subj Patient information: Note initiated : 04/26/18 at 2:23 pm Service Date, if different from initiated Date: [] Patient: Cole Biggs 52 y/o M admitted on 04/22/18 for cold/fever. Chief Complaint: [] Interval history: Mr. Biggs is a 52 year old M with history of smoking, daily use of marijuana, presents to the emergency room for evaluation of shortness of breath and cough that has been bothering him for the last 3-4 days. He and his partner have been down with a viral cough it seems for the last few days, started after he visited a friend in the hospital. Patient has cough whitish sputum no blood in the sputum, denies any sinus congestion or runny nose or watery eyes. He denies any headache changes in vision difficulty in swallowing, denies any nausea abdominal pain, he did have diarrhea watery but has now resolved. He was seen in the chest clinic today and was noted to be hypoxic and therefore sent to the hospital for further evaluation. On presentation patient was afebrile however had a maximum temperature of 101.7 in the ER, heart rate of 101 blood pressure 123/67, respirations 20-24, lowest oxygen saturation was 82% on room air. Chest x-ray was reported as negative. Labs unremarkable, d-dimer mildly elevated at 0.54 lactic acid 1.6 UA clean. Flu test done in the ED was negative. CT angiogram for pulmonary embolism was negative for PE, patient did have moderate bronchitis on the chest CT. patient reports that his back pain is worse after his coughing bouts, he has pins in his back thinks its dislodged. He feels anxious at times. In ther ER despide multiple duonebs, the patient remained hypoxic and is therefore being admitted to the hospital for further management. 04/23 Patient seen and examined, no acute overnight events, oxygen is at 4 L. Influe nza tested positive on repeat testing. Patient is on Zithromax as well as Tamiflu. Clinically remained stable but has significant bilateral wheezing no other complaints or concerns. x ray neg for any displacement of screws 04/24 Patient seen and examined, lying comfortably in bed, feels much better compared to yesterday. Oxygen needs have come down, patient is around 1.5-2 L of oxygen now via nasal cannula. He reports increased ability to take deep breaths however still has shortness of breath on exertion. Still wheezing 04/25 Patient seen examined, anxious, and depressed today, no SI noted fustrated that he is not getting better He took a shower and felt dizzy and short of breath later still is on oxygen, was on 1L but later 2-3 after the shower he is still wheezing on exam, 04/26 Patient seen examined, no acute issues, no anxiety reported, on cpap now, feels better oxygen saturation at rest is 89%, still has some wheezing going on. Continue with present teratment anticipate d/c in AM once off oxygen and osat atleast 90 on room air. Pertinent ROS: Denies headache, dizziness Denies chest pain, palpitations shortness of breath improving. Denies abdominal pain, nausea or vomiting. - Constitutional Vitals: Vital Signs Temp Pulse Resp BP Pulse Ox 97.9 F 97 H 18 125/72 92 04/26/18 07:09 04/26/18 08:10 04/26/18 08:10 04/26/18 07:09 04/26/18 09:00 Period Temp Pulse Resp BP Sys/Vora Pulse Ox Last 24 Hr 97.6 F-98.3 F 80-102 16-22 124-158/71-86 91-96 Intake and Output 04/26/18 04/26/18 04/26/18 05:59 13:59 21:59 Intake Total 1500 Balance 1500 Intake & Output: Intake & Output 04/26/18 04/26/18 04/26/18 05:59 13:59 21:59 Intake Total 1500 Balance 1500 Intake: Oral 1500 Other: Stool Size Small Moderate Stool Color Brown Brown Stool Consistency Formed Normal for Patient # Voids 3 3 # Bowel Movements 1 # of times incontinent of 1 Bowels Exam: Constitutional; Afebrile, cooperative, alert, not in distress. Respiratory system: Air Entry equal on both sides, air entry improved, has ally exp wheezing, which continues to improve, CVS- Rate rhythm regular, S1,S2 heard, no gallop, no rub. Abdomen- Soft nontender abdomen, no organomegaly, no tenderness, no guarding or rigidity, AREA OPERATIONS DIRECTOR- AOOx3, moving all extremities, no gross focal deficit noted. Medical - PN: Obj Da - Labs CBC & Chem 7: 04/26/18 05:15 04/26/18 05:15 Labs: Abnormal Lab Results 04/26/18 04/26/18 04/25/18 05:15 05:15 05:15 Plt Count [place] % (Auto) 13.8 H [place] # (Auto) 1.2 H Carbon Dioxide 32 H 31 H Glucose 106 H Phosphorus 4.6 H AST 73 H 38 H ALT 136 H 41 H Lactate Dehydrogenase 309 H Triglycerides 278 H 186 H 04/25/18 04/24/18 04/24/18 05:15 04:50 04:50 Plt Count 138 L [place] % (Auto) 15.2 H 12.5 H [place] # (Auto) 1.1 H 1.0 H Carbon Dioxide Glucose 115 H Phosphorus AST ALT Lactate Dehydrogenase Triglycerides Meds: Medications Acetaminophen (Tylenol) 650 mg PO Q6HP PRN PRN Reason: PAIN/FEVER > 101 Albuterol Sulfate (Ventolin) 2.5 mg NEB Q2HP PRN PRN Reason: Shortness Of Breath Albuterol/Ipratropium (Duoneb) 3 ml NEB Q4HRT [facility] Last Admin: 04/26/18 11:29 Dose: Not Given Documented by: Docusate Sodium (Colace) 100 mg PO BID [facility] Last Admin: 04/26/18 08:48 Dose: 100 mg Documented by: Doxazosin Mesylate (Cardura) 1 mg PO [facility] Last Admin: 04/25/18 21:15 Dose: 1 mg Documented by: Famotidine (Pepcid) 20 mg PO BID [facility] Last Admin: 04/26/18 08:48 Dose: 20 mg Documented by: Heparin Sodium (Porcine) (Heparin) 5,000 unit SQ Q12 [facility] Last Admin: 04/26/18 08:47 Dose: 5,000 unit Documented by: Lorazepam (Ativan) 0.5 mg IV Q4HP PRN PRN Reason: ANXIETY/SEDATION Last Admin: 04/25/18 21:14 Dose: 0.5 mg Documented by: Naloxone HCl (Narcan) 0.1 mg IV Q2MIN PRN PRN Reason: Opiate Reversal Ondansetron HCl (Zofran) 4 mg IV Q6HP PRN PRN Reason: Nausea And Vomiting Oseltamivir Phosphate (Tamiflu) 75 mg PO BID [facility] Last Admin: 04/26/18 08:47 Dose: 75 mg Documented by: Prednisone (Prednisone) 40 mg PO [facility] Last Admin: 04/26/18 08:47 Dose: 40 mg Documented by: Ropinirole HCl (Requip) 0.5 mg PO [facility] Last Admin: 04/25/18 21:15 Dose: 0.5 mg Documented by: Senna (Senokot) 1 tab PO [facility] Last Admin: 04/25/18 21:16 Dose: 1 tab Documented by: Sodium Chloride (Saline Flush) 10 ml IV Q8 [facility] Last Admin: 04/26/18 08:45 Dose: 10 ml Documented by: Tizanidine HCl (Zanaflex) 4 mg PO TID [facility] Last Admin: 04/26/18 08:48 Dose: 4 mg Documented by: Trazodone HCl (Desyrel) 25 mg PO [facility] PRN PRN Reason: Insomnia Last Admin: 04/25/18 21:15 Dose: 25 mg Documented by: Medical - PN: A/P - Time Spent With Patient Total time spent is greater than 50% in coordination of care (as documented) at patient's floor/unit and/or counseling patient: - Narrative A/P Narrative: A/P Acute copd exacerbatin Acute hypoxic resp failure Chr back pain Anxiety BPH acute influenza A Plan ativan prn to help with anxiety oxygen to keep osat > 90, wean off oxygen as tolerated, on 1.5 - 2 L via nc, Oxygen sat 89 % on room air at this time, still has wheezing and shortness of breath, anticipate improvement by tomorrow. Duonebs, zithromax and steroids to continue PO tamiflu, to continue THC positive on utox, pt daily user patient still needs to be inpatient given that he is still needing oxygen supplementation, and is wheezing. rrepeat cxr is normal. . DVT hep sq Diet regular Full code.
[2018-04-26] MEDS: SENNOSIDES 1 TABLET PO SCH (21:48)
[2018-04-26] MEDS: rOPINIRole 0.25 MG TABLET PO SCH (21:48)
[2018-04-26] MEDS: DOXAZOSIN 1 MG TABLET PO SCH (21:48)
[2018-04-26] MEDS: traZODone HCL 50 MG TABLET PO PRN (22:03)
[2018-04-26] MEDS: LORazepam 2 MG/ML VIAL IV PRN (22:03)
[2018-04-27] MEDS: IPRATROPIUM/ALBUTEROL 3 ML AMPUL.NEB NEB SCH ×4 (04:18→12:59)
[2018-04-27 05:12] LABS: Basophils # (Auto) 0 K/mcL (0.0-0.3); Basophils % (Auto) 0.1 % (0.0-2.0); Eosinophils # (Auto) 0 K/mcL (0.0-0.7); Eosinophils % (Auto) 0.2 % (0.0-7.0); Granulocytes % (Auto) 62.7 % (38.0-78.0); Lymphocytes # (Auto) 2.4 K/mcL (1.5-4.8); Lymphocytes % (Auto) 25.8 % (15.5-49.0); Mean Cell Volume 89.5 fL (80.0-100.0); Mean Corpuscular HGB Conc 32.7 g/dL (31.0-36.0); Monocytes % (Auto) 11.2 % (1.0-12.0); Platelet Count 157 K/mcL (140-440); Red Cell Distribution Width 13.6 % (11.5-14.5)
[2018-04-27] MEDS: 0.9 % SODIUM CHLORIDE 10 ML SYRINGE IV SCH ×2 (06:11→14:49)
[2018-04-27 06:15] LABS: ALT/SGPT 129 U/l (0-40); Albumin 3.8 gm/dL (3.2-5.2); Albumin/Globulin Ratio 1.4 (1.0-2.3); Alkaline Phosphatase 46 U/L (39-117); Bilirubin,Direct < 0.2 mg/dL (0.0-0.3); Blood Urea Nitrogen 14 mg/dl (6-20); Gamma Glutamyl Transpeptidase 30 U/L (8-61); Uric Acid 5.1 mg/dL (2.5-8.0)
[2018-04-27] MEDS: predniSONE 20 MG TABLET PO SCH (10:54)
[2018-04-27] MEDS: FAMOTIDINE 20 MG TABLET PO SCH (10:55)
[2018-04-27] MEDS: HEPARIN 5,000 UNIT/ML VIAL SQ SCH (10:55)
[2018-04-27] MEDS: DOCUSATE SODIUM 100 MG CAPSULE PO SCH (10:55)
[2018-04-27] MEDS: tiZANidine 4 MG TABLET PO SCH (10:55)
--- NOTE | 2018-04-27 12:25 | Discharge Summary ---
Medical - DS: Prov Patient information: Note initiated : 04/27/18 at 12:20 pm Service Date, if different from initiated Date: [] Patient: Cole Biggs 52 y/o M admitted on 04/22/18 for cold/fever. Chief Complaint: [] Date of admission: 04/22/18 22:32 Discharge date: 04/27/18 Primary care physician: JUSTEN Niño Consults: 04/22/18 Consult to Physician [CONS] Stat Comment: Consulting Provider: Monica Thibodeaux Reason For Exam: Physician to Consult Discharging clinician: Monica Thibodeaux Medical - DS: Meds - Discharge Medications Prescriptions: Ipratropium/Albuterol Sulfate [Combivent] 2 puff INH QID #1 inhaler Oseltamivir Phosphate [Tamiflu] 75 mg PO BID #4 cap predniSONE [Prednisone] 10 mg PO DAILY #23 tab Active and Home Medications: Home Medications Doxazosin [Cardura] 1 mg PO HS 04/22/18 [History Confirmed 04/22/18 Last Taken 04/21/18 23:30] rOPINIRole [Requip] 0.5 mg PO HS 04/22/18 [History Confirmed 04/22/18 Last Taken 04/21/18 23:30] tiZANidine [Zanaflex] 4 mg PO TID 04/22/18 [History Confirmed 04/22/18 Last Taken 04/21/18 23:30] Medical - DS: Hosp Hospital course: Mr. Biggs is a 52 year old M with history of smoking, daily use of marijuana, presents to the emergency room for evaluation of shortness of breath and cough that has been bothering him for the last 3-4 days. He and his partner have been down with a viral cough it seems for the last few days, started after he visited a friend in the hospital. Patient has cough whitish sputum no blood in the sputum, denies any sinus congestion or runny nose or watery eyes. He denies any headache changes in vision difficulty in swallowing, denies any nausea abdominal pain, he did have diarrhea watery but has now resolved. He was seen in the chest clinic today and was noted to be hypoxic and therefore sent to the hospital for further evaluation. On presentation patient was afebrile however had a maximum temperature of 101.7 in the ER, heart rate of 101 blood pressure 123/67, respirations 20-24, lowest oxygen saturation was 82% on room air. Chest x-ray was reported as negative. Labs unremarkable, d-dimer mildly elevated at 0.54 lactic acid 1.6 UA clean. Flu test done in the ED was negative. CT angiogram for pulmonary embolism was negative for PE, patient did have moderate bronchitis on the chest CT. patient reports that his back pain is worse after his coughing bouts, he has pins in his back thinks its dislodged. He feels anxious at times. In ther ER despide multiple duonebs, the patient remained hypoxic and is therefore being admitted to the hospital for further management. 04/23 Patient seen and examined, no acute overnight events, oxygen is at 4 L. Influenza tested positive on repeat testing. Patient is on Zithromax as well as Tamiflu. Clinically remained stable but has significant bilateral wheezing no other complaints or concerns. x ray neg for any displacement of screws 04/24 Patient seen and examined, lying comfortably in bed, feels much better compared to yesterday. Oxygen needs have come down, patient is around 1.5-2 L of oxygen now via nasal cannula. He reports increased ability to take deep breaths however still has shortness of breath on exertion. Still wheezing 04/25 Patient seen examined, anxious, and depressed today, no SI noted fustrated that he is not getting better He took a shower and felt dizzy and short of breath later still is on oxygen, was on 1L but later 2-3 after the shower he is still wheezing on exam, 04/26 Patient seen examined, no acute issues, no anxiety reported, on cpap now, feels better oxygen saturation at rest is 89%, still has some wheezing going on. Continue with present teratment anticipate d/c in AM once off oxygen and osat atleast 90 on room air. 04/27 Patient seen and examined, sitting comfortably in chair, oxygen saturation 89- 90% on room air. Patient does not qualify for home oxygen. He does have mild expiratory wheezes but predominantly soft symptoms sound upper airway. Given his obesity, obstructive sleep apnea I will refer him to ENT for evaluation of his upper airway. Discharge diagnosis: Influenzae, COPD - Time Spent with Patient Total time spent providing and/or coordinating discharge services: Greater than 30 minutes Medical - DS: Exam - Constitutional Vitals: Vital Signs Temp Pulse Pulse Resp BP Pulse Ox 04/27/18 11:58 97.9 F 16 90 04/27/18 08:23 87 18 04/27/18 06:50 97.7 F 18 122/80 97 04/27/18 04:00 97.3 F 83 16 125/74 98 04/26/18 23:35 98.9 F 78 18 133/66 91 04/26/18 22:25 81 16 04/26/18 19:51 86 18 92 04/26/18 19:40 98.2 F 86 20 135/81 93 04/26/18 19:30 84 20 04/26/18 16:00 97.9 F 18 128/80 91 04/26/18 15:36 81 16 04/26/18 14:57 95 H 91 04/26/18 14:53 93 H 86 L Intake and Output 04/26/18 04/27/18 04/27/18 21:59 05:59 13:59 Intake Total 620 275 Balance 620 275 Intake: Oral 620 275 Other: Meal Dinner Percent of Meal Consumed 100% Feeding Ability Independent # Voids 2 2 Weight 266 lb 8 oz Additional comments: Constitutional; Afebrile, cooperative, alert, not in distress. Eyes- No icterus, , No periorbital swelling Ears- Ext ear normal, hearing normal to conversation. Neck- Midline trachea, supple Respiratory system: Air Entry equal on both sides,no crackles, mild exp wheeze. CVS- Rate rhythm regular, S1,S2 heard, no gallop, no rub. Abdomen- Soft nontender abdomen, no organomegaly, no tenderness, no guarding or rigidity, PRACTICE ASSISTANT- AOOx3, moving all extremities, no gross focal deficit noted. Medical - DS: Data Labs on day of discharge: Labs from last 24 hours 04/27/18 04/27/18 04:20 04:20 WBC 9.2 RBC 4.90 Hgb 14.3 Hct 43.8 MCV 89.5 MCH 29.2 MCHC 32.7 RDW 13.6 Plt Count 157 MPV 8.9 Gran % 62.7 Lymph % (Auto) 25.8 [place] % (Auto) 11.2 Eos % (Auto) 0.2 Baso % (Auto) 0.1 Gran # 5.8 Lymph # (Auto) 2.4 [place] # (Auto) 1.0 H Eos # (Auto) 0 Baso # (Auto) 0 Sodium 139 Potassium 4.0 Chloride 98 Carbon Dioxide 31 H Anion Gap 10.0 BUN 14 Creatinine 0.8 GFR Calculation 103 Glucose 110 H Uric Acid 5.1 Calcium 8.6 Phosphorus 4.4 Magnesium 2.3 Total Bilirubin 0.3 Direct Bilirubin < 0.2 GGT 30 AST 33 ALT 129 H Alkaline Phosphatase 46 Lactate Dehydrogenase 219 Total Protein 6.6 Albumin 3.8 Globulin 2.8 Albumin/Globulin Ratio 1.4 Triglycerides 195 H Preliminary micro results at discharge 04/22/18 14:34 Blood Culture - Preliminary Blood 04/22/18 14:39 Blood Culture - Preliminary Blood Medical - DS: A/P - Patient/Caregiver Discharge Instructions Activity: increase activity as tolerated Diet: Regular Diet Additional Instructions: Please take your medications as prescribed. I have prescribed you a Combivent inhaler to help with your breathing. Uses inhaler 4 times a day, Please take prednisone with food. You are given 10 mg tablets, take 4 tablets or 40 mg for 3 days then 2 tablets for 3 days then 1 tablet for 3 days then half a tablet for 3 days then stop. Follow-up with your regular doctor in 1 week I am making a referral for evaluation by ear nose throat specialist for evaluation of your throat. Go to the emergency room if worsening symptoms chest pain shortness of breath or any other acute concern - Follow up Plan Follow up with: Heriberto Longoria MD [Referring] - Stiven Mcelroy DO [Physician] - Disposition: Home, Self-Care Prognosis: Fair Rehab Potential: Fair I certify that the patient requires SNF services: No Overall status at discharge: patient is progressing back to baseline
[2018-04-27] MEDS: OSELTAMIVIR PHOSPHATE 75 MG CAPSULE PO SCH (12:56)
== END 2018-04-27 14:45 | disposition home or self-care (01) | DRG 152 ==
LOC: ED 13:55 → MEDSUR 22:32
PROVIDERS: ADMIT Internal Medicine; ATTEND Internal Medicine